=== PATIENT | male | born 1960 | race Asian ===

== ENCOUNTER 2017-07-23 07:13 | Day surgery (SDC) | payer OTHER ==
[2017-07-23 07:24] VITALS: BMI 27.9
--- NOTE | 2017-07-23 07:40 | PDOC ---
Attending Attestation - Resident Resident Name: Renny Tompkins - HPI HPI: 07/23/17 08:45 Pt presents to the ED complaining of pain from hernia that he has had for several years. Pt has had hernia for years, but recently began to experience pain. Denies nausea, vomiting or fever. Tolerating PO with normal appetite. - Physicial Exam PE: 07/23/17 08:49 Agree with resident exam. abdomen is non tender on my exam. - Medical Decision Making 07/23/17 08:53 Pt presents to the ED complaining of painful hernia. Case discussed with Dr. Kinney, who plans to operate on the patient this afternoon. Will check labs, keep patient NPO.
--- NOTE | 2017-07-23 08:15 | PDOC ---
History of Present Illness - General Chief Complaint: Pain, Acute Stated Complaint: PAIN IN LOWER ABDOMAN Time Seen by Provider: 07/23/17 07:35 History Source: Patient Exam Limitations: No Limitations - History of Present Illness Initial Comments: 07/23/17 08:00 57M with no pmh presents to the ED with left-sided inguinal bulge and pain. The pain is 3-5/10, non-radiating. About 2 years ago the patient noticed a bulge in his left groin above the penis that increased in size with straining and sitting from a lying position and that he was able to push back in. He started started feeling pain 2 month ago with increasing difficulty in reducing the bulge correlating with increase in size. Saw Dr. Rivera last month and then again last week as the patient had to leave the country in between those times. Last week Dr. Rivera saw him and told him to come to the ER today for evaluation before inguinal hernia repair surgery Patient denies nausea, vomiting, tolerates food well with daily bowel movement and gas passing. Patient NPO since last night. On physical exam the patient appears comfortable. Regular cardiac rate and rhythm Lungs clear to auscultation bilaterally. Normoactive bowel sounds. Non-tender. Left upper medial groin slightly tender to palpation. Left-sided 5cm diameter irreducible inguinal hernia Past History - Past Medical History Allergies/Adverse Reactions: Allergies Allergy/AdvReac Type Severity Reaction Status Date / Time No Known Allergies Allergy Verified 07/23/17 07:21 Anemia: No Asthma: No Cancer: No Cardiac Disorders: No CVA: No COPD: No CHF: No Dementia: No Diabetes: Yes (PRE DIABETIC after weight gain) GI Disorders: No Disorders: No HTN: Yes (after weight gain) Hypercholesterolemia: No Liver Disease: No Seizures: No Thyroid Disease: No - Surgical History Abdominal Surgery: No Appendectomy: No Cardiac Surgery: No Cholecystectomy: No Lung Surgery: No Neurologic Surgery: No Orthopedic Surgery: No - Suicide/Smoking/Psychosocial Hx Smoking History: Never smoked Have you smoked in the past 12 months: No Hx Alcohol Use: No Drug/Substance Use Hx: No Substance Use Type: None Hx Substance Use Treatment: No Review of Systems - Review of Systems Able to Perform ROS?: Yes Is the patient limited Austrian proficient: No Constitutional: No: Diaphoresis, Fever, Loss of Appetite, Unintentional Wgt. Loss, Unexplained wgt Loss HEENTM: No: Symptoms Reported Respiratory: No: Symptoms reported Cardiac (ROS): No: Symptoms Reported ABD/GI: Yes: See HPI. No: Rectal Bleeding, Vomiting Musculoskeletal: No: Symptoms Reported Integumentary: No: Symptoms Reported Neurological: No: Symptoms reported All Other Systems: Reviewed and Negative *Physical Exam - Vital Signs Last Vital Signs Temp Pulse Resp BP Pulse Ox 97.7 F 77 16 137/89 98 07/23/17 07:18 07/23/17 07:18 07/23/17 07:18 07/23/17 07:18 07/23/17 07:18 - Physical Exam General Appearance: Yes: Nourished, Appropriately Dressed. No: Apparent Distress HEENT: positive: EOMI, JUWAN, Normal ENT Inspection Neck: positive: Trachea midline. negative: Tender Respiratory/Chest: positive: Lungs Clear, Normal Breath Sounds. negative: Chest Tender Cardiovascular: positive: Regular Rhythm, Regular Rate, S1, S2 Gastrointestinal/Abdominal: positive: Normal Bowel Sounds, Tender (slight tenderness on the left upper medial groin, 5cm mass) Medical Decision Making - Medical Decision Making 07/23/17 08:19 57M with left sided groin mass and pain for evaluation before surgery. Spoke to Dr. Rivera who will operate on the patient today. labs, lytes, type and screen and coag panel pending. *DC/Admit/Observation/Transfer Diagnosis at time of Disposition: Unilateral incarcerated inguinal hernia - Discharge Dispostion Admit: Yes - Referrals Referrals: Jake Leal MD [Primary Care Provider] - Azeem Rivera MD [Staff Physician] - - Patient Instructions - Post Discharge Activity
[2017-07-23 08:25] LABS: BASOPHIL 1.5 % (0-2.0); EOSINOPHIL 6.9 % (0-4.5); MCH 31.3 pg (25.7-33.7); MCHC 34.9 g/dl (32.0-35.9); MEAN CELL VOLUME 89.6 fl (80-96); MEAN PLT VOLUME 9.1 fl (7.5-11.1); NEUTROPHILS 42.6 % (42.8-82.8); PLATELET COUNT 192 K/MM3 (134-434); RDW 12.7 % (11.9-15.9); WHITE BLOOD COUNT 8.7 K/mm3 (4.0-10.0)
[2017-07-23 08:39] LABS: INR 0.96 (0.82-1.09); PROTHROMBIN TIME (PATIENT) 10.9 SEC (9.98-11.88)
[2017-07-23 08:42] LABS: ACTIVATED PTT 30.9 SECONDS (26.9-34.4)
[2017-07-23 08:53] LABS: ALBUMIN 3.8 g/dl (3.4-5.0); ALK PHOS 65 U/L (45-117); ANION GAP 9 (8-16); BILIRUBIN,TOTAL 0.4 mg/dL (0.2-1.0); CALCIUM 8.3 mg/dL (8.5-10.1); CO2 28 mmol/L (21-32); GLUCOSE,RANDOM 142 mg/dL (74-106); SGOT/AST 14 U/L (15-37); SGPT/ALT 29 U/L (12-78); TOT PROT 7.5 g/dl (6.4-8.2)
[2017-07-23] MEDS ORDERED: BUPIVACAINE HCL/PF 0.5% (5MG/ML) 10 ML VIAL ONE (11:26)
[2017-07-23] MEDS ORDERED: MIDAZOLAM HCL 2 MG/2 ML SINGLE DOSE VIAL ONE (12:06)
--- NOTE | 2017-07-23 12:30 | HP ---
Admitting History and Physical - Admission Chief Complaint: Left groin pain History of Present Illness: 57 male with left inguinal hernia presents with left groin pain worsening in the last few days History Source: Patient Limitations to Obtaining History: No Limitations - Past Medical History Cardiovascular: Yes: HTN - Past Surgical History Past Surgical History: Yes: None - Smoking History Smoking history: Never smoked Have you smoked in the past 12 months: No - Alcohol/Substance Use Hx Alcohol Use: No Home Medications - Allergies Allergies/Adverse Reactions: Allergies Allergy/AdvReac Type Severity Reaction Status Date / Time No Known Allergies Allergy Verified 07/23/17 07:21 - Home Medications Home Medications: Ambulatory Orders NK [No Known Home Medication] 07/23/17 Family Disease History - Family Disease History Family Disease History: Heart Disease: Mother (in her 70s, ?stent) Review of Systems - Review of Systems Constitutional: denies: Chills, Fever HENT: reports: No Symptoms Neck: reports: No Symptoms Cardiovascular: denies: Chest Pain Respiratory: denies: Cough Gastrointestinal: reports: Abdominal Pain (Left groin) Neurological: denies: Change in LOC Pain Intensity: 3 Physical Examination Vital Signs: Vital Signs Temperature 97.7 F 07/23/17 07:18 Pulse Rate 70 07/23/17 11:18 Respiratory Rate 16 07/23/17 07:18 Blood Pressure 138/90 07/23/17 11:18 O2 Sat by Pulse Oximetry (%) 97 07/23/17 11:18 Constitutional: Yes: Calm HENT: Yes: WNL Neck: Yes: Supple Cardiovascular: Yes: Regular Rate and Rhythm Respiratory: Yes: CTA Bilaterally Gastrointestinal: Yes: Soft, Other (Left inguinal hernia- moderate tenderness) Neurological: Yes: Alert, Oriented Labs: CBC, BMP 07/23/17 08:15 07/23/17 08:15 Problem List - Problems (1) Unilateral incarcerated inguinal hernia Code(s): K40.30 - UNIL INGUINAL HERNIA, W OBST, W/O GANGR, NOT SPCF RECUR Assessment/Plan 57 male with left inguinal hernia with pain Likely chronically incarcerated Will proceed with robotic possible open left inguinal hernia repair with mesh
[2017-07-23] MEDS ORDERED: ROCURONIUM BROMIDE 50 MG/5 ML VIAL ONE (12:43)
[2017-07-23] MEDS ORDERED: ceFAZolin SODIUM 1 GM VIAL IVPB ONE (13:00)
[2017-07-23] MEDS ORDERED: KETOROLAC TROMETHAMINE 30 MG/1 ML VIAL ONE (13:17)
[2017-07-23] MEDS ORDERED: DEXAMETHASONE SOD PHOSPHATE 4 MG/1 ML VIAL ONE (13:17)
[2017-07-23] MEDS ORDERED: BUPIVACAINE HCL/PF 0.5% (5MG/ML) 10 ML VIAL IJ ONE ×2 (13:53→14:46)
[2017-07-23] MEDS ORDERED: PROPOFOL 20 ML ONE (14:03)
[2017-07-23] MEDS ORDERED: ONDANSETRON 4 MG/2 ML VIAL IVPUSH PRN (14:10)
[2017-07-23] MEDS ORDERED: oxyCODONE HCL 5 MG TABLET PO PRN (14:10)
[2017-07-23] MEDS ORDERED: PROMETHAZINE HCL 25 MG/1 ML VIAL IVPUSH PRN (14:10)
[2017-07-23] MEDS ORDERED: LACTATED RINGERS SOLUTION 1,000 ML IV SCH (14:15)
[2017-07-23] MEDS ORDERED: SUCCINYLCHOLINE CHLORIDE 200 MG/10 ML VIAL ONE (14:55)
[2017-07-23] MEDS ORDERED: NEOSTIGMINE METHYLSULFATE 0.5 MG/ML - 10 ML MDV ONE (14:59)
--- NOTE | 2017-07-23 15:12 | OP ---
Operative Note - Note: Operative Date: 07/23/17 Pre-Operative Diagnosis: left inguinal hernia/umbilical hernia Operation: robotic left inguinal hernia repair/laparoscopic umbilical Surgeon: Azeem Rivera Cop Breaker: Mansi Cortes Anesthesiologist/COMMERCIAL LITIGATION PARALEGAL: Robert Sarkar Anesthesia: General Estimated Blood Loss (mls): 30 Operative Report Dictated: Yes
--- NOTE | 2017-07-23 15:15 | SURG ---
Surgery Program Support Assistant Note Program Support Assistant: Mansi Cortes PA-C Date of Service: 07/23/17 Diagnosis: left inguinal hernia/umbilical hernia Procedure: robotic assisted left inguinal hernia/laparoscopic umbilical hernia I was present for the entirety of the operative procedure. For further detail, please refer to operative report. Visit type - Case Type Case Type: ED Admission - Emergency Emergency Visit: No - New patient This patient is new to me today: Yes Date on this admission: 07/23/17
[2017-07-23 15:55] LABS: BASOPHIL 0.5 % (0-2.0); EOSINOPHIL 3.2 % (0-4.5); MCH 30.8 pg (25.7-33.7); MCHC 34.2 g/dl (32.0-35.9); MEAN CELL VOLUME 90.1 fl (80-96); MEAN PLT VOLUME 9.4 fl (7.5-11.1); NEUTROPHILS 69.6 % (42.8-82.8); PLATELET COUNT 176 K/MM3 (134-434); RDW 12.8 % (11.9-15.9); WHITE BLOOD COUNT 12.2 K/mm3 (4.0-10.0)
[2017-07-23 16:13] LABS: ANION GAP 8 (8-16); CALCIUM 7.9 mg/dL (8.5-10.1); CO2 29 mmol/L (21-32); CREATININE 1.1 mg/dL (0.7-1.3); GLUCOSE,RANDOM 159 mg/dL (74-106)
--- NOTE | 2017-07-23 16:31 | EKG ---
Test Reason : Blood Pressure : / mmHG Vent. Rate : 074 BPM Atrial Rate : 074 BPM P-R Int : 168 ms QRS Dur : 102 ms QT Int : 374 ms P-R-T Axes : 041 004 -10 degrees QTc Int : 415 ms NORMAL SINUS RHYTHM NORMAL ECG NO PREVIOUS ECGS AVAILABLE Confirmed by MILAN BRADLEY MD ([id number]) on 07/23/2017 4:31:01 PM Referred By: Confirmed By:MILAN BRADLEY MD
[2017-07-23 17:01] VITALS: TEMP 98.1
[2017-07-23] MEDS ORDERED: oxyCODONE HCL 5 MG TABLET ONE (17:50)
--- NOTE | 2017-07-23 17:52 | SPEC ---
DATE OF OPERATION: 07/23/2017 SURGEON: Payal Rivera MD CAKE WRINGER: SAMIR Aguilar PREOPERATIVE DIAGNOSIS: Incarcerated left inguinal hernia. POSTOPERATIVE DIAGNOSIS: Incarcerated left direct inguinal hernia and umbilical hernia. PROCEDURE: Robotic repair of incarcerated left inguinal hernia with mesh and laparoscopic repair of umbilical hernia. REASON FOR PROCEDURE: This is a 57-year-old gentleman who had previously been diagnosed with a left inguinal hernia. He presented with pain to the emergency room consistent with incarceration of his left inguinal hernia. A robotic, possible open approach to the left inguinal hernia was explained, and the risks and benefits of a robotic, possible open left inguinal hernia repair with mesh were further described. RISKS AND BENEFITS: The risks and benefits of a Robotic, possible open left inguinal hernia repair, possible bilateral inguinal hernia repair with mesh were explained. These included bleeding, infection, recurrence of hernia, SC, DVT, PE, new hernia, mesh infection, injury to surrounding structures, including the colon, bowel, bladder, ureter, spermatic cord, spermatic vessels, vas deferens, vessel injury, nerve injury, testicular injury, including testicular atrophy and possible testicular loss, and as some of the possible complications. The patient understood and signed informed consent. DESCRIPTION OF PROCEDURE: The patient was placed supine on the operating table. The patient underwent general endotracheal intubation. A Adler catheter was inserted. The arms were tucked at the side and he was placed on a beanbag device. The abdomen was prepped and draped in the usual sterile fashion. A time-out was performed. A periumbilical incision was made and entrance into the abdominal cavity was obtained using an 8-mm robotic optical trocar under direct visualization with the laparoscope. Pneumoperitoneum was established. Subsequently, 2 additional 8-mm trocars were placed, one approximately 6 to 7 cm to the left of the umbilicus and one 6 to 7 cm to the right of the umbilicus. The patient was placed in steep Trendelenburg [id number] position. The robot was brought over the field and docked. Dissection was performed at the console. The peritoneum was opened using robotic Endo Jayde. The preperitoneal space over the left inguinal region was dissected. The epigastric vessels were identified and dissected toward the anterior abdominal wall. Dissection in the preperitoneal space was continued from the medial umbilical ligament towards the anterior-superior iliac spine. Medially, dissection was performed until Nabeel's ligament and the pubis were identified. Lateral to this, the spermatic cord structures, including the vas deferens, were identified. The contents of the hernia sac were identified and dissected down to the retroperitoneum. At this point, hemostasis was identified. Again, all of the hernia content was noted to be completely dissected and noted to have no retraction back to its original position. A Symbotex mesh was then chosen, irrigated and inserted into the abdominal cavity to cover the entire myopectineal orifice. The mesh was secured medially at the pubis and superolaterally to the abdominal wall with sutures. The mesh was noted to be in good position. The hernia was again noted to be fully reduced and without any tension. At this point, the peritoneal flap was closed using a 2-0 V-Loc suture. Again, hemostasis was identified. All needles were removed from the field and the count was confirmed to be correct. The robotic instruments were removed. The robot was undocked and removed from the operative field. The patient was placed supine. Pneumoperitoneum was desufflated. All trocars were removed. All incision sites were irrigated and Marcaine was injected in all incision sites. Hemostasis was noted at all incision sites. All incision sites were closed using 4-0 Biosyn. Sterile dressings were applied. The Adler catheter was removed. The patient tolerated the procedure well and was transferred to the recovery room in stable condition. In addition, at the beginning of the case, the patient was noted to have an umbilical hernia as well. The initial trocar was placed through the umbilical hernia, and the left inguinal hernia was repaired. At the end of the case, once the left inguinal hernia was repaired, the trocar through the umbilical hernia was removed. The umbilical hernia was repaired using 0 Vicryl suture with a Alli-Cecelia device. Sterile dressings were applied. The patient tolerated the procedure well, was transferred to recovery room in stable condition. PAYAL RIVERA M.D. [id number]
[2017-07-23 18:44] VITALS: BP 141/77; PULSE 90
== END 2017-07-23 18:40 | disposition home or self-care (01) ==
LOC: JER 07:13 → JASUSAT 08:25
PROVIDERS: ATTEND Surgery
PROC: 8E0W4CZ Robotic Assisted Procedure of Trunk Region, Percutaneous Endoscopic Approach (ICD-10-PCS; 2017-07-23)
PROC: 0WQF4ZZ Repair Abdominal Wall, Percutaneous Endoscopic Approach (ICD-10-PCS; 2017-07-23)
PROC: 0YU64JZ Supplement Left Inguinal Region with Synthetic Substitute, Percutaneous Endoscopic Approach (ICD-10-PCS; principal; 2017-07-23 11:30)
DX: K40.30 Unilateral inguinal hernia, with obstruction, without gangrene, not specified as recurrent (principal); K42.9 Umbilical hernia without obstruction or gangrene
CPT/HCPCS: 49650; 49652; S2900; 36415; 71020-TC; 80048; 80053; 85025; 85610; 85730; 86850; 86900; 86901; 93005; 93010; 94760; 99283-25